=== PATIENT | male | born 1985 | race Hispanic/Latino ===

== ENCOUNTER → 2018-11-19 | Day surgery (SDC) | payer BC ==
[~2018-11-19] MED LIST: FENTANYL CITRATE/PF 100MCG/2 ML INJ ONE; MIDAZOLAM HCL 2 MG/2 ML VIAL ONE; PROPOFOL IV EMULSION 10 MG/ML 50 ML VIAL ONE
[2018-11-19 13:38] VITALS: BP 105/78
--- NOTE | 2018-11-19 20:44 | Operative Report ---
DATE OF PROCEDURE: 11/19/2018 SURGEON: Simone Santoro MD PROCEDURE: Esophagogastroduodenoscopy with biopsies and esophageal dilatation. INDICATIONS FOR PROCEDURE: Acid reflux, dysphagia, bloating. MEDICATIONS: The patient was done under MAC, please see anesthesiologist's note. PROCEDURE IN DETAIL: With the patient in left lateral decubitus position, a flexible fiberoptic Olympus gastroscope was introduced into the esophagus under direct visualization without any difficulty. There was some patchy erythema noted in distal esophagus. The scope was then advanced with ease into the stomach. Mucosa overlying the antrum and the body revealed some patchy erythema and low-grade edema. Biopsies were obtained and sent to stain for H pylori. Two minute nodules were noted in the distal body and those were biopsied. The pylorus was of normal contour and shape, was intubated with ease and the scope was advanced all the way to the second portion of the duodenum. Biopsies were obtained from the second portion as well as from the duodenal bulb to rule out sprue. The scope was then withdrawn back into the stomach and retroflexed and mucosa overlying the fundus and cardia appeared to be within normal limits. The scope was then straightened out, was subsequently withdrawn. The patient tolerated the procedure well. The esophagus was then dilated to size 52-Italian Moss. IMPRESSION: 1. Distal esophagitis, mild. 2. Esophagus dilated to size 52-Italian Moss. 3. Gastritis, biopsied, biopsies sent to stain for H pylori. 4. Minute nodules, distal body, biopsied. 5. Rule out sprue. PLAN: Follow up histology. Initiate Protonix 40 mg one p.o. q.a.m. before meals. Simone Santoro MD [facility] [place]/[facility] /[id number] cc: Simone Santoro MD
== END | disposition home or self-care (01) ==
LOC: OR 10:45
PROVIDERS: ATTEND Internal Medicine Gastroenterology
DX: K21.0 Gastro-esophageal reflux disease with esophagitis (principal); K29.50 Unspecified chronic gastritis without bleeding; R19.00 Intra-abdominal and pelvic swelling, mass and lump, unspecified site; R19.6 Halitosis
CPT/HCPCS: 43239; 43450; J2250; J2704